=== PATIENT | male | born 1950 | race Caucasian/White ===

== ENCOUNTER 2018-12-09 08:27 | Day surgery (SDC) | payer MEDICARE, OTHER ==
[~2018-12-09] VITALS: Ht 185.4 cm; Wt 98.4 kg
--- NOTE | ~2018-12-09 | OR ---
[facility] [address], [place] [address] Draft DATE OF OPERATION: 12/09/2018 SURGEON: Micah Holloway MD PREOPERATIVE DIAGNOSES: 1. Personal history of colonic polyps in 2015. 2. Diverticulosis. 3. Father with possible history of colonic polyps. POSTOPERATIVE DIAGNOSES: 1. Moderate pandiverticulosis. 2. Minimal to moderate internal and external hemorrhoids. 3. Narrow tortuous sigmoid colon. PROCEDURE: Colonoscopy without biopsy. ESTIMATED BLOOD LOSS: None. INDICATIONS: Dacia is a 68-year-old gentleman, who had colonic polyps removed with the [facility] in [place], [place] in 2014. These were adenomatous polyps. He also had diverticulosis. There was some concern that his father had colonic polyps, but to his memory that is incorrect. He said he has no lower GI complaints. He reminded me I helped his last year with her colonoscopy. In the office, I gave him a pamphlet on colonoscopy and we had reviewed that together. He understands the nature of the test along with the risks including, but not limited to gas, bloating, crampy abdominal pain, bleeding, perforation, requiring surgery, and missed diagnosis. He also understands the need for IV conscious sedation. He said taking the MiraLax and Gatorade bowel prep was quite a bit better. He had expressed understanding and wished to proceed. PROCEDURE NOTE: Dacia was taken into our endoscopy suite and placed in the left lateral decubitus position. He was given 6 mg of Versed and 200 mcg of fentanyl. A digital rectal exam was performed. He does have some minimal to moderate external hemorrhoids. Good sphincter tone. His prostate is a little indurated. The adult colonoscope was introduced and advanced under direct visualization of camera. Dacia is slight build with a body mass index of 28. We found that his sigmoid colon was tortuous and narrow. He ended up having pandiverticulosis. They were moderate in size, moderate in number, PATIENT NAME: DACIA THOMAS OPERATIVE REPORT DATE OF : 46 REPORT #: [id number] PHYSICIAN: MICAH HOLLOWAY MD PCP: TU MCKEON MD REPORT IS CONFIDENTIAL AND NOT TO BE RELEASED WITHOUT AUTHORIZATION [facility] [address], [place] [address] Draft and scattered about. It took extra sedation abdominal compression and rotating Dacia into the supine position with copious amounts of lubrication on the scope in order to get the scope to advance through the sigmoid colon into the cecum itself. His prep was good. We could see the ileocecal valve and appendiceal orifice. Pictures were taken throughout for photodocumentation. The scope was then slowly withdrawn. Again, he has pandiverticulosis. Once again, we could easily see that he had a narrow and tortuous sigmoid colon. The rectum itself was unremarkable. Upon retroflexion of the scope, he did have some minimal to moderate internal hemorrhoid tissue. After this, the gas was suctioned out. The colonoscope removed. Dacia tolerated the procedure quite well. RECOMMENDATIONS: Dacia can follow up in 5 years for repeat colonoscopy. Micah Holloway MD ALB/MODL /[id number] cc: MD Micah Dodd MD Copies: TU MCKEON MD, ANDREW L MD ~ PATIENT NAME: DACIA THOMAS OPERATIVE REPORT DATE OF : 46 REPORT #: [id number] PHYSICIAN: MICAH HOLLOWAY MD PCP: TU MCKEON MD REPORT IS CONFIDENTIAL AND NOT TO BE RELEASED WITHOUT AUTHORIZATION
[~2018-12-09 08:27] MED LIST: ASPIRIN EC81 MG PO; LIPITOR40 MG PO; MEGESTROL ACETA40 MG PO; NASONEX17 GM NAS; PAXIL40 MG PO; PSYLLIUM HUSK1 GM MISC; VITAMIN D1000 UNI1 PO
--- NOTE | 2018-12-09 11:12 | NUR ---
12/09/18 1112 Sheets,Sofía 1103 PT ARRIVED TO PACU ON 3L VIA NC. PT ASLEEP AND PERIODS OF APNEA NOTED. PT WAKES TO TACTILE STIMULI AND IS ENCOURGED TO DEEP BREATHE, PT ABLE TO FOLLOW COMMANDS. PT VERY DROWSY AND CAN'T KEEPS EYES OPEN, PT RIGHT BACK TO SLEEP. 1111 PT CONTINES TO SLEEP AND WAKES OFF AND ON WITH TACTILE SSTIMULI AND DEEP BREAHTES WHEN ASKED.
== END 2018-12-09 12:03 | disposition home or self-care (01) ==
LOC: DS 08:27 → OPS 08:27 → DS 09:45 → OPS 12:03
PROVIDERS: Colon & Rectal Surgery
PROC: 0DJD8ZZ Inspection of Lower Intestinal Tract, Via Natural or Artificial Opening Endoscopic (ICD-10-PCS; principal; 2018-12-09 09:45)
DX: Z12.11 Encounter for screening for malignant neoplasm of colon (principal); K57.30 Diverticulosis of large intestine without perforation or abscess without bleeding; K64.8 Other hemorrhoids; K64.4 Residual hemorrhoidal skin tags; Z86.010 Personal history of colon polyps; M19.90 Unspecified osteoarthritis, unspecified site; Z88.2 Allergy status to sulfonamides; Z79.82 Long term (current) use of aspirin; Z79.899 Other long term (current) drug therapy
CPT/HCPCS: 99153; G0500; J2250; J3010; J7120

== ENCOUNTER 2021-01-14 05:35 | Day surgery (SDC) | payer MEDICARE, OTHER ==
[~2021-01-14] VITALS: Ht 185.4 cm; Wt 93.2 kg
[~2021-01-14 05:35] MED LIST changes: +ADULT ASPIRIN R81 MG PO; -ASPIRIN EC81 MG PO
--- NOTE | 2021-01-14 09:54 | NUR ---
PT IS BACK TO DS FROM PACU. PT WILL BE GOING TO MED/SURG AT SOME POINT, WAITING FOR A ROOM TO OPEN UP. PT HAS NO C/O'S PAIN. IS AT THE BEDSIDE. CALL LIGHT WITHIN REACH. WATER ON BEDSIDE TABLE. DR. RAMOS IS AT THE BEDSIDE TALKING WITH PT AND . NO ADDITIONAL NEEDS.
--- NOTE | 2021-01-14 09:56 | NUR ---
01/14/21 0956 Lida Li 0910 PT ARRIVED IN PACU SLEEPY WITH NO C/O'S. GUARDADO INTACT WITH CBI RUNNING. URINE CLEAR IN COLOR. 0920 RESTING. REU. 0950 TO DS. REPORT GIVEN TO RN. AT BEDSIDE.
--- NOTE | 2021-01-14 12:00 | NUR ---
PT IS DOING WELL, MINIMAL PAIN. SPINAL IS RESOLVED. HE WOULD LIKE TO ORDER LUNCH. STILL AT THE BEDSIDE. CALL LIGHT WITHIN REACH. TOLERATING WATER. NO ADDITIONAL NEEDS AT THIS TIME.
--- NOTE | 2021-01-14 12:54 | NUR ---
PT IS TOLERATING HIS LUNCH. NO C/O'S PAIN. CALL LIGHT WITHIN REACH. NO ADDITIONAL NEEDS AT THIS TIME.
--- NOTE | 2021-01-14 13:30 | NUR ---
PT ARRIVES TO UNIT VIA STRETCHER WITH AT BEDSIDE. PT ALERT AND ORIENTED AND STATES NO PAIN OR DISCOMFORT. CBI INFUSING, WNL. IV FLUIDS CHANGED PER ORDER AND INFUSING WNL. ASSESSMENT COMPLETE, PLAN OF CARE REVIEWED AND PT AND SPOUSE AGREEABLE. ORIENTED TO ROOM. FRESH WATER AND WARM BLANKETS PROVIDED. CALL LIGHT IN REACH.
--- NOTE | 2021-01-14 13:36 | NUR ---
PT IS TAKEN DOWN MS ROOM 124. VERBAL BEDSIDE REPORT IS GIVEN TO DANN Cr RN.
--- NOTE | 2021-01-14 14:28 | NUR ---
PT ALERT, ORIENTED AND SUPPORTED BY HIS CR. ALL QUESTIONS ASKED WERE ANSWERED. PT SOMEWHAT ANXIOUS, GAVE COMFORT, BOTH REQUESTED PRAYER. TIMOTHY CARVALHO FROM [place] IN TO TAKE PT. GAVE BLESSING, WILL FOLLOW NEEDED
--- NOTE | 2021-01-14 15:53 | NUR ---
HOURLY POST OP VITALS TAKEN, PT COMFORTABLE WITH NO PAIN OR NEEDS. DRAINAGE IN GUARDADO BAG CLEAR YELLOW, CBI INFUSING WNL AT SLOW RATE. IVF INFUSING WNL. CALL LIGHT IN REACH. PATIENT STABLE
[2021-01-14] MEDS ORDERED: RAPAFLO4 MG PO (16:09)
--- NOTE | 2021-01-14 16:10 | NUR ---
MED REC COMPLETE
--- NOTE | 2021-01-14 16:30 | NUR ---
POST OP VITALS TAKEN, NO NEEDS
--- NOTE | 2021-01-14 18:13 | NUR ---
PATIENTS VITALS TAKEN AND CHARTED. PATIENTS STATES HE HAS NO PAIN. NOTHING ELSE NEEDED AT THE MOMENT.
--- NOTE | 2021-01-14 18:51 | NUR ---
PT DOING WELL. CBI BEING WEANED, DRAINAGE YELLOW TO LIGHT PINK WITH NO CLOTS NOTED. PT REPORTS NO PAIN, EATING REGULAR DIET AND TAKING IN SUFFICIENT PO FLUIDS. IVF INFUSING WNL. CALLS APPROPRIATELY.
--- NOTE | 2021-01-14 19:24 | NUR ---
BEDSIDE REPORT RECEIVED FROM TIMOTHY QUIGLEY. pt RESTING IN BED. VERBALIZES UNDERSTANDING NOT TO GET OUT OF BED WITHOUT RN IN ROOM, BED REST ENCOURAGED FOR NIGHT. CBI CLAMPED AT THIS TIME, YELLOW CONCENTRATED URINE, SLIGHT PINK TINGE IN GUARDADO BAG. IVF INFUSING WNL. pt HAS NO REQUESTS AT THIS TIME.
--- NOTE | 2021-01-14 20:30 | NUR ---
V/S AND I&O'S DONE AND RECORDED. GUARDADO CARE DONE.
--- NOTE | 2021-01-14 20:35 | NUR ---
pt AWAKE RESTING IN BED. GUARDADO CARE COMPLETE, EDUCATION PROVIDED. GUARDADO WITH CONCENTRATED URINE, SLIGHT PINK COLOR. CBI CLAMPED. VSS. pt DENIES PAIN. C/O ITCHING, PRN BENADRYL ADMINISTERED. CALL LIGHT IN REACH. NO ADDITIONAL NEEDS AT THIS TIME.
--- NOTE | 2021-01-14 22:54 | NUR ---
CHECKED ON pt. RESTING IN BED WITH EYES CLOSED, BREATHING UNLABORED. GUARDADO WITH CONCENTRATED URINE IN TUBE, NO HEMATURIA NOTED.
--- NOTE | 2021-01-15 02:46 | NUR ---
pt SLEEPING, AWAKENS TO VOICE. VSS. GUARDADO EMPTIED, CONCENTRATED YELLOW URINE, NO HEMATURIA NOTED. ASSESSMENT COMPLETE. NEW BAG IVF INFUSING WNL. pt DENIES ANY PAIN. CALL LIGHT IN REACH. NO ADDITIONAL REQUESTS.
--- NOTE | 2021-01-15 04:15 | NUR ---
CHECKED ON pt. RESTING IN BED WITH EYES CLOSED. BREATHING EQUAL AND UNLABORED.
--- NOTE | 2021-01-15 05:59 | NUR ---
pt RESTING IN BED. VSS. URINAL EMPTIED, LIGHT PINK IN COLOR, URINE IN TUBE YELLOW. pt DENIES PAIN. CALL LIGHT IN REACH. NO REQUESTS.
--- NOTE | 2021-01-15 07:10 | NUR ---
REPORT RECEIVED FROM AYESHA AGUIRRE. PT RESTING IN BED, A+O, STATES NO NEEDS AT THIS TIME. IVF INFUSING WNL. DRAINAGE TO GUARDADO LIGHT YELLOW/PINK WITH NO CLOTS NOTED. WILL CONTINUE PLAN OF CARE
[2021-01-15] MEDS ORDERED: CIPRO500 MG PO (08:24)
[2021-01-15] MEDS ORDERED: OXYCODONE HCL5 MG PO (08:26)
--- NOTE | 2021-01-15 08:33 | NUR ---
SCHEDULED MEDICATIONS ADMINISTERED. VITALS AND I/O'S COMPLETE. LIGHT YELLOW, LIGHT PINK URINE DRAINING INTO GUARDADO BAG. CBI REMAINS CLAMPED. IVF INFUSING WNL. PT DANGLED AT BEDSIDE WITH THIS RN AND ROOM SERVICE RUNNER AND STOOD/WALKED IN ROOM WITH NO DIFFICULTIES. PT REPORTS NO PAIN. ASSESSMENT COMPLETE.
--- NOTE | 2021-01-15 11:15 | NUR ---
Spoke with Capri. He lives in [place] with his Gabi. Plans on dc today. Denies needs or help at home. He is an active person a nd walks 2-3 x per week. Denies further needs. will take him home today. Catheter will remain in place. Will follow up with Dr. Crowell tomorrow.
--- NOTE | 2021-01-17 08:39 | OR ---
[facility] [address] [place], [place] [address] Signed DATE OF OPERATION: 01/14/2021 SURGEON: Stephanie Ramos MD PREOPERATIVE DIAGNOSES: 1. Benign prostatic hyperplasia with lower urinary tract symptoms. 2. Incomplete bladder emptying. POSTOPERATIVE DIAGNOSES: 1. Benign prostatic hyperplasia with lower urinary tract symptoms. 2. Incomplete bladder emptying. NAMES OF PROCEDURES: 1. Urethral dilation using Ronald sounds. 2. Transurethral resection of the prostate. ANESTHESIA: spinal epidural. ESTIMATED BLOOD LOSS: 10 mL. COMPLICATIONS: None. SPECIMENS: Prostate chips sent to pathology for evaluation. COMPLICATIONS: None. DRAINS: A 22-Burkinan three-way Barajas catheter, connected to continuous bladder irrigation. INDICATIONS FOR PROCEDURE: Mr. Goel is a very pleasant 70-year-old gentleman, who initially presented to me for a 2nd opinion regarding his severe prostate enlargement and bladder symptoms. He had undergone a previous cystoscopy, which revealed no overt abnormality; however, he was continuing to experience significant urgency, frequency and weak force of stream symptoms. He ultimately underwent urodynamic studies which did reveal an element of Electronically Signed By: STEPHANIE RAMOS MD 01/17/21 0839 PATIENT NAME: DACIA GOEL OPERATIVE REPORT DATE OF : 46 REPORT #: [id number] PHYSICIAN: STEPHANIE RAMOS MD PCP: TU MCKEON MD REPORT IS CONFIDENTIAL AND NOT TO BE RELEASED WITHOUT AUTHORIZATION [facility] [address] [place], [place] [address] Signed bladder outlet obstruction. Once this was performed, a repeat diagnostic cystoscopy was performed here at [place], which did reveal a medium-sized middle lobe that I suspected could easily be obstructing his force of stream. Of note, the patient has a history of prostate cancer treated with radiation. After discussion of the risks and benefits of transurethral resection of the prostate in the setting of radiated tissue, the patient agreed to undergo the aforementioned procedure. OPERATIVE FINDINGS: 1. On cystoscopy, there was no evidence of any suspicious masses, lesions, or stones. Bilateral ureteral orifices are in their normal anatomic location effluxing clear urine. There is diffuse grade 2-3 bladder wall trabeculation noted. 2. Evaluation of the prostatic urethra reveals [id number] lateral lobe hypertrophy with a 1.5 cm distance from bladder neck to verumontanum. Of note, he does have a moderately-sized median lobe of the prostate. 3. Given his history of radiation therapy, I chose to focus on the bladder neck and middle lobe of the prostate. Both the bladder neck and median lobe of the prostate were resected using 24-Burkinan loop using bipolar cautery. I did also resect the apical portion of the lateral lobes of the prostate, avoiding the more distal aspect of the prostate to avoid any potential damage to the external sphincter. 4. At the end of the procedure, a 22-Burkinan three-way Barajas catheter was inserted into the patient's bladder and connected to continuous bladder irrigation. There was very minimal blood loss during the resection of the prostate today. DESCRIPTION OF PROCEDURE: After informed consent was obtained, the patient was taken back to the operating room. He was transferred from the [facility] to the operating room table, where epidural anesthesia was induced. He was then placed in the dorsal lithotomy position and his genitalia prepped and draped in a standard sterile fashion. His urethral meatus and distal urethra were then dilated using Ronald sounds from 18-Burkinan to 30-Burkinan without difficulty. Using a visual obturator, the 26-Burkinan sheath was then inserted into the patient's bladder and a diagnostic cystoscopy was then performed. Please see above findings. I switched out the visual obturator for resectoscope, inserted onto a 30-degree lens. Once I established the location of the bilateral ureteral orifices, I began resection of the median lobe of the prostate. Once the median lobe was adequately resected, I resected a portion of both anterior and posterior aspect of the bladder neck. I then turned my attention to the left lateral lobe of the prostate which was gently resected proximally. The right lobe was also resected down. I did not resect as much distally due to his history of radiation therapy. Overall, a nice channel was created within the prostatic urethra. The resection was performed without any significant difficulty and there was minimal bleeding associated with the resection. At the end of the procedure, I re-evaluated the bilateral ureteral orifices and they were noted to be in their normal location without any evidence of iatrogenic injury. The Electronically Signed By: STEPHANIE RAMOS MD 01/17/21 0839 PATIENT NAME: DACIA GOEL OPERATIVE REPORT DATE OF : 46 REPORT #: [id number] PHYSICIAN: STEPHANIE RAMOS MD PCP: TU MCKEON MD REPORT IS CONFIDENTIAL AND NOT TO BE RELEASED WITHOUT AUTHORIZATION [address] [address] Signed patient's bladder was then thoroughly irrigated using a Edd syringe and the prostate chips were placed in a specimen cup to be sent for pathological evaluation. After the loop was used for resection of majority of the bulk of the prostate tissue, I then turned to the bipolar button to assist with hemostasis of the resected prostate bed. Once hemostasis was achieved, the resectoscope was removed, leaving the sheath behind. A 0.035 Sensor wire was inserted through the sheath and into the patient's bladder. The 26-Burkinan sheath was then removed leaving the Sensor wire behind. Over the wire, I passed a 22-Burkinan three-way Barajas catheter into the patient's bladder. The catheter passed into the bladder without any difficulty. I removed the wire and manually irrigated the catheter to confirm adequate placement of the catheter into the patient's bladder. The catheter balloon was then filled with 30 mL of sterile water. The catheter was then connected to continuous bladder irrigation. The procedure was then terminated. The patient tolerated the procedure well without any complication. He will now be transferred to the post anesthesia care unit in stable condition. DISPOSITION: I discussed the details of today's procedure with the patient's and answered all of her questions. The resection went quite well today and there was very minimal bleeding associated with the resection. He will now be transferred to the floor for management of his continuous bladder irrigation. This will be weaned slowly to the off position keeping his urine clear to light pink in color overnight. The plan is for the patient to be discharged to home tomorrow once he receives his IV Rocephin and his urine remains clear . He was sent home today with Cipro 500 b.i.d. for a total of 7 days and oxycodone 2.5 mg q.6 hours p.r.n. pain. He will return to clinic in two days for his first voiding trial. MD MICHELLE King/LEATHA /[id number] Copies: ~ Electronically Signed By: STEPHANIE RAMOS MD 01/17/21 0839 PATIENT NAME: DACIA GOEL OPERATIVE REPORT DATE OF : 46 REPORT #: [id number] PHYSICIAN: STEPHANIE RAMOS MD PCP: TU MCKEON MD REPORT IS CONFIDENTIAL AND NOT TO BE RELEASED WITHOUT AUTHORIZATION
--- NOTE | 2021-01-18 16:19 | PATH ---
[facility] [facility] [address] [place], [place] [address] Signed SPECIMEN(S): A PROSTATE CHIPS (TUR) SPECIMEN SOURCE: A. PROSTATE CHIPS (TUR) CLINICAL HISTORY: BPH, history of prostate CA. FINAL PATHOLOGIC DIAGNOSIS: Prostate chips, transurethral resection: - Benign prostatic tissue with changes consistent with radiation therapy. - No evidence of malignancy. - See Comment. COMMENT: The history of prostate cancer diagnosed in 2016 status post external beam radiation therapy in 2017 and androgen deprivation therapy is noted. The specimen was entirely submitted for histologic examination. The majority of prostate chips are comprised of fibrotic prostatic stroma without significant mitoses, cellular atypia, or cellularity. A few scattered prostatic glands are present, with inconspicuous epithelial cells. Vessel estes are hyalinized. TRICAP multiplex stains (with appropriately staining controls) were performed to evaluate a few of the remaining glands, which demonstrated retained basal cells with p63 and HMWCK and negative epithelial P504S staining, supporting the absence of carcinoma. Overall, the histologic changes are favored to be secondary to radiation therapy. As part of [facility]' Quality Improvement Program, this case was reviewed by another member of our pathology staff. NAL:cml:C2NR MICROSCOPIC EXAMINATION: Histologic sections of all submitted blocks are examined by light microscopy. These findings, together with the gross examination, support the pathologic diagnosis. GROSS DESCRIPTION: The specimen, labeled "DL," and designated on the requisition "prostate chips," is received in formalin and consists of multiple irregular pieces of pink-martinez to hemorrhagic soft to rubbery tissue (10 g, 5.5 x 3.7 x 2.4 cm in aggregate). The specimen is submitted entirely in PATIENT NAME: DACIA THOMAS PATHOLOGY DATE OF : 46 REPORT #: [id number] PHYSICIAN: JIMMIE PATHOLOGY PCP: TU MCKEON MD REPORT IS CONFIDENTIAL AND NOT TO BE RELEASED WITHOUT AUTHORIZATION [facility] [address] [place], [place] [address] Signed cassette A1-A6. AC (under the direct supervision of a pathologist) The Gross Description was prepared using a voice recognition system. The report was reviewed for accuracy; however, sound-alike word errors, addition and/or deletions may occur. If there is any question about this report, please contact Client Services. ADDITIONAL NOTES: Immunohistochemical and/or in situ hybridization studies were performed on this case with the appropriate positive controls that react as expected. This test was developed and its performance characteristics determined by [facility]. It has not been cleared or approved by the U.S. Food and Drug Administration. The FDA has determined that such clearance or approval is not necessary. This test is used for clinical purposes. It should not be regarded as investigational or for research. [facility] is certified under the Clinical Laboratory Improvement Amendments of 1988 (CLIA) as qualified to perform high complexity clinical laboratory testing. This assay has not been validated for specimens that have been decalcified. PERFORMING LABORATORY: The technical component was performed by [facility], [address] [place] [id number] (Furnace Filler: Sun Sahni MD; CLIA# [id number]). [facility], [address] [address] (CLIA# [id number]). Diagnostician: Lily Velasquez MD Pathologist Electronically Signed 01/18/2021 Copies: ~ PATIENT NAME: DACIA THOMAS PATHOLOGY DATE OF : 46 REPORT #: [id number] PHYSICIAN: JIMMIE ERVIN PCP: TU MCKEON MD REPORT IS CONFIDENTIAL AND NOT TO BE RELEASED WITHOUT AUTHORIZATION
== END 2021-01-15 11:28 | disposition home or self-care (01) ==
LOC: DS 05:35 → MS 13:40 → DS 01-15 11:28
PROVIDERS: ATTEND Urology
PROC: 0T7D8ZZ Dilation of Urethra, Via Natural or Artificial Opening Endoscopic (ICD-10-PCS; 2021-01-14)
PROC: 0VT08ZZ Resection of Prostate, Via Natural or Artificial Opening Endoscopic (ICD-10-PCS; principal; 2021-01-14 06:45)
DX: N40.1 Benign prostatic hyperplasia with lower urinary tract symptoms (principal); Z85.46 Personal history of malignant neoplasm of prostate
CPT/HCPCS: 00914; 88305; 88344; C1769; J0690; J0696; J1100; J2001; J2274; J2405; J2704; J7030; J7121

== ENCOUNTER 2025-04-21 16:49 | Observation (INO) | payer OTHER ==
[~2025-04-21] VITALS: Ht 185.4 cm; Wt 78.6 kg
[~2025-04-21 16:49] MED LIST changes: +CIPRO500 MG PO; +MEGESTROL ACETA20 MG PO; -MEGESTROL ACETA40 MG PO; +NASONEX 24HR AL17 ML NAS; -NASONEX17 GM NAS; +OXYCODONE HCL5 MG PO; +PAXIL20 MG PO; -PAXIL40 MG PO; +RAPAFLO4 MG PO
[2025-04-21] MEDS ORDERED: WAL-ZYR10 MG PO (17:05)
[2025-04-21 17:16] LABS: BASOPHILS 0.6 % (0.2-1.2); EOSINOPHILS 2.9 % (0.8-7.0); LYMPHOCYTES 35.7 % (21.8-53.1); MCH 29.2 PG (25.7-32.2); MCHC 32.6 g/dL (32.3-36.5); MCV 89.4 fL (79.0-92.2); MONOCYTES 12.3 % (5.3-12.2); NEUTROPHILS 47.9 % (34.0-67.9); RBC 4.35 M/uL (4.63-6.08)
[2025-04-21 17:20] LABS: INR 1.07 (0.80-1.30); PROTIME 13.2 Sec (11.2-14.2)
[2025-04-21 17:28] LABS: ALT (SGPT) 13.0 U/L (14-59); AST (SGOT) 15.0 U/L (15-37); GLOMERULAR FILTRATION RATE,EST 50.0 mL/min (>60); PROTEIN, TOTAL 7.4 g/dL (6.4-8.2); UREA NITROGEN 29.0 mg/dL (7-18)
[2025-04-21] MEDS ORDERED: ACETAMINOPHEN 325 MG TAB PO PRN (21:00)
[2025-04-21] MEDS ORDERED: ALBUTEROL/IPRATROPIUM 3 ML NEB INH ONE (21:30)
[2025-04-21 22:10] VITALS: BP 126/55
--- NOTE | 2025-04-21 22:13 | NUR ---
RECEIVED REPORT. TRANSPORTED PT FROM ER TO ROOM 121 VIA STRETCHER ACCOMPANIED BY CR. REQUESTS TO FAX DISCHARGE INFO TO [place] DR. MCKEON AT . PROVIDED ICE WATER. ORIENTED TO PLAN OF CARE.
--- NOTE | 2025-04-22 00:04 | NUR ---
PT ALERT IN BED, WATCHING TV. NO NEEDS PRESENTLY, CALL LIGHT IN REACH
--- NOTE | 2025-04-22 01:32 | NUR ---
ASSISTED PT TO BATHROOM 1PA WTIH CANE. MILD GOLD. 1 INCONT BM TO BRIEFS. VITALS TAKEN. NO OTHER NEEDS, CALL LIGHT IN REACH
[2025-04-22 01:41] VITALS: BP 146/61
[2025-04-22 01:43] VITALS: BP 146/61
--- NOTE | 2025-04-22 02:29 | NUR ---
PT RESTING IN BED WITH EYES CLOSED, RISE AND FALL OF CHEST OBSERVED. CALL LIGHT IN REACH
--- NOTE | 2025-04-22 04:49 | NUR ---
PT RESTING IN BED WITH EYES CLOSED, RISE AND FALL, OF CHEST OBSERVED. SPOW 94%. CALL LIGHT IN REACH
[2025-04-22 05:27] LABS: BASOPHILS 0.3 % (0.2-1.2); EOSINOPHILS 0.2 % (0.8-7.0); LYMPHOCYTES 21.4 % (21.8-53.1); MCH 29.3 PG (25.7-32.2); MCHC 32.1 g/dL (32.3-36.5); MCV 91.2 fL (79.0-92.2); MONOCYTES 1.9 % (5.3-12.2); NEUTROPHILS 75.7 % (34.0-67.9); RBC 3.99 M/uL (4.63-6.08)
[2025-04-22 05:43] LABS: ALT (SGPT) 14.0 U/L (14-59); AST (SGOT) 14.0 U/L (15-37); GLOMERULAR FILTRATION RATE,EST 60.0 mL/min (>60); PROTEIN, TOTAL 6.7 g/dL (6.4-8.2); UREA NITROGEN 26.0 mg/dL (7-18)
[2025-04-22 05:48] VITALS: BP 115/55
--- NOTE | 2025-04-22 06:12 | NUR ---
VITALS, AM MEDS. ASSISTED PT TO BATHROOM 1PA WITH CANE. CHANGED BRIEF. COFFEE ON REQUEST. NO OTHER NEEDS, CALL LGT IN REACH
--- NOTE | 2025-04-22 06:28 | NUR ---
CCU CALLS TO REPORT EPISODES OF AFIB. AFIB NOT NOTED IN PT HISTORY, BUT PT AND SELF-REPORT A HX OF ATRIAL FIBRILLATION. HE IS UNSURE IF HE TAKES ANY MEDICATION FOR IT. HIS PLANS TO BRING HIS HOME MEDS THIS AM. NOTIFIED MD OF AFIB EPISODE.
--- NOTE | 2025-04-22 07:24 | NUR ---
MORNING REPORT RECEIVED FROM TIMOTHY JUSTICE. PT SITTING UP IN BED AT THIS TIME WITH SITTING AT PT BEDSIDE, PT DENIES ANY NEEDS AT THIS TIME. PT BROUGHT PT MEDICATIONS FROM HOME AND MEDICATIONS PLACED IN LOCK BOX FOR MD TO SEE, MD AWARE. PT HAS CALL LIGHT IN REACH.
--- NOTE | 2025-04-22 08:03 | EKG ---
[facility] [address] [facility] [place] [address] Signed Sinus rhythm with occasional premature ventricular complexes Left anterior fascicular block Nonspecific T wave abnormality Prolonged QT Abnormal ECG When compared with ECG of 09-JAN-2021 13:55, premature ventricular complexes are now present Nonspecific T wave abnormality now evident in Lateral leads Confirmed by Gisselle Palmer MD ([id number]) on 04/22/2025 8:03:29 AM Electronically Signed By: GISSELLE PALMER MD 04/22/25 0803 PATIENT NAME: DACIA THOMAS Electrocardiogram DATE OF : 46 PHYSICIAN: GISSELLE PALMER MD REPORT #: [id number] REPORT IS CONFIDENTIAL AND NOT TO BE RELEASED WITHOUT AUTHORIZATION
[2025-04-22] MEDS ORDERED: ACETAMINOPHEN 325 MG TAB PO PRN (09:30)
--- NOTE | 2025-04-22 09:33 | NUR ---
PT SITTING UP IN BED, PT ON RA TRAIL AND TOLERATING WELL O2 SAT @96% ON RA AT THIS TIME, PT DENIES SOB. PT HAS IN ROOM AND CALL LIGHT IN REACH.
[2025-04-22] MEDS ORDERED: PROBIOTIC1 EAC1 PO (09:41)
[2025-04-22] MEDS ORDERED: VITAMIN B-12500 MCG PO (09:42)
[2025-04-22] MEDS ORDERED: XTANDI80 MG PO (09:42)
[2025-04-22] MEDS ORDERED: TOPROL XL25 MG PO (09:42)
[2025-04-22] MEDS ORDERED: PEPCID20 MG PO (09:43)
--- NOTE | 2025-04-22 09:43 | NUR ---
MED REC COMPLETE
[2025-04-22 10:00] VITALS: BP 109/63
[2025-04-22] MEDS ORDERED: MEGESTROL ACETATE 40 MG TAB PO SCH (10:09)
[2025-04-22] MEDS ORDERED: FAMOTIDINE 20 MG TAB PO SCH (10:09)
[2025-04-22] MEDS ORDERED: LACTOBACILLUS RHAMNOSUS GG 1 EACH CAP PO SCH (10:09)
[2025-04-22] MEDS ORDERED: METOPROLOL SUCCINATE 25 MG TABCR PO SCH (10:10)
[2025-04-22] MEDS ORDERED: PREDNISONE20 MG PO (10:37)
[2025-04-22 11:12] VITALS: BP 109/63
[2025-04-22] MEDS ORDERED: PHARMACY RENAL DOSE ADJUSTMENT 1 DOSE MISC PO SCH (12:00)
[2025-04-23] MEDS ORDERED: ENOXAPARIN SODIUM 40 MG/0.4 ML SYR SUB-Q SCH (09:00)
== END 2025-04-22 11:32 | disposition home or self-care (01) ==
LOC: ED 16:49 → MS 16:51
PROVIDERS: Emergency Medicine; ADMIT Student in an Organized Health Care Education/Training Program; ATTEND Student in an Organized Health Care Education/Training Program
DX: J44.1 Chronic obstructive pulmonary disease with (acute) exacerbation (principal); J43.2 Centrilobular emphysema; J43.8 Other emphysema; C61 Malignant neoplasm of prostate; F39 Unspecified mood [affective] disorder; E78.00 Pure hypercholesterolemia, unspecified; I49.9 Cardiac arrhythmia, unspecified; K21.9 Gastro-esophageal reflux disease without esophagitis; Z86.718 Personal history of other venous thrombosis and embolism; Z87.891 Personal history of nicotine dependence; Z79.899 Other long term (current) drug therapy; Z88.2 Allergy status to sulfonamides
CPT/HCPCS: 36415; 71045; 71260; 80053; 84484; 85025; 85610; 93005; 93010; 93970; 94640; 94760; 96374; 96375; 96376; 99285-25; G0378; J2919; Q9967

== ENCOUNTER 2025-08-11 15:34 | Emergency (ER) | payer OTHER ==
[~2025-08-11] VITALS: Ht 185.4 cm; Wt 81.2 kg
[~2025-08-11 15:34] MED LIST changes: +PEPCID20 MG PO; +PREDNISONE20 MG PO; +PROBIOTIC1 EAC1 PO; +TOPROL XL25 MG PO; +VITAMIN B-12500 MCG PO; +WAL-ZYR10 MG PO; +XTANDI80 MG PO
--- OUTSIDE RECORDS SUMMARY | 2025-08-11 15:42 | XMS ---
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 E.Saroj VISIT COUNT (12 MO.) [address] Valeria Baron (Crystal Rojas) TOTAL 3 NOTE: Visits indicate total known visits. 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 - Chronic kidney disease, stage 3a - Cystitis, unspecified without hematuria - Hyperlipidemia, unspecified - Idiopathic sleep related nonobstructive alveolar hypoventilation - Ischemic cardiomyopathy - Malignant neoplasm of prostate - Other symptoms and signs involving the musculoskeletal system - Peptic ulcer, site unspecified, unspecified as acute or chronic, without hemorrhage or perforation - Presence of coronary angioplasty implant and graft - Sepsis, unspecified organism - Severe sepsis with septic shock - ST elevation (STEMI) myocardial infarction involving other coronary artery of anterior wall 04/21/2025 16:51 [facility] TYPE: Observation COMPLAINT: - EMPHYSEMA,HYPOXIA DIAGNOSES: - Allergy status to sulfonamides - Cardiac arrhythmia, unspecified - Centrilobular emphysema - Chronic obstructive pulmonary disease with (acute) exacerbation - Gastro-esophageal reflux disease without esophagitis - Malignant neoplasm of prostate - Other emphysema - 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
[2025-08-11] MEDS ORDERED: VAZALORE81 MG PO (18:37)
[2025-08-11 18:48] LABS: BASOPHILS 0.3 % (0.2-1.2); EOSINOPHILS 1.0 % (0.8-7.0); LYMPHOCYTES 20.3 % (21.8-53.1); MCH 28.4 PG (25.7-32.2); MCHC 31.8 g/dL (32.3-36.5); MCV 89.3 fL (79.0-92.2); MONOCYTES 11.3 % (5.3-12.2); NEUTROPHILS 65.8 % (34.0-67.9); RBC 3.66 M/uL (4.63-6.08)
[2025-08-11 18:49] LABS: BLOOD/HGB, URINE LARGE (Negative); KETONE, URINE NEGATIVE (Negative); LEUK ESTERASE, URINE LARGE (negative); NITRITE, URINE NEGATIVE (negative)
[2025-08-11 19:00] LABS: BACTERIA, URINE NONE SEEN /hpf (negative); CASTS, URINE NONE SEEN \\lpf; CRYSTALS, URINE NONE SEEN (0-1+); EPITHELIAL CELLS, URINE 0 /lpf (0-1+); REFLEX CULTURE, URINE Yes (No)
[2025-08-11 19:04] LABS: ALT (SGPT) 9.0 U/L (14-59); AST (SGOT) 13.0 U/L (15-37); GLOMERULAR FILTRATION RATE,EST 43.0 mL/min (>60); PROTEIN, TOTAL 7.9 g/dL (6.4-8.2); UREA NITROGEN 27.0 mg/dL (7-18)
[2025-08-11] MEDS ORDERED: FLUCONAZOLE 150 MG TAB PO ONE (19:45)
[2025-08-11] MEDS ORDERED: FLUCONAZOLE150 MG PO (19:49)
[2025-08-11] MEDS ORDERED: FUROSEMIDE40 MG PO (19:49)
[2025-08-11 20:08] VITALS: BP 175/84
== END 2025-08-11 20:15 | disposition home or self-care (01) ==
LOC: ED 15:34
PROVIDERS: Emergency Medicine
DX: I50.9 Heart failure, unspecified (principal); Z88.2 Allergy status to sulfonamides; Z79.82 Long term (current) use of aspirin; Z79.899 Other long term (current) drug therapy; Z87.891 Personal history of nicotine dependence
CPT/HCPCS: 36415; 71045; 80053; 81001; 83690; 83880; 84484; 85025; 87077; 87088; 87186; 99285-25